=== PATIENT | male | born 1945 | race Caucasian/White ===

== ENCOUNTER → 2016-07-01 | Outpatient (CLI) | payer OTHER ==
--- NOTE | 2016-07-01 11:53 | RAD ---
PROCEDURE MRI cervical spine without contrast. HISTORY Neck and left shoulder pain for 3 weeks. No known injury. TECHNIQUE Sagittal T1, sagittal T2, sagittal STIR, axial T2, and axial T2 gradient sequences are provided. COMPARISON January 21, 2016. FINDINGS There is no change in alignment. There is no worrisome marrow lesion. Minimal endplate edema is noted at C5-C6. This appears degenerative. There is no cord signal abnormality. The cervicomedullary junction is unremarkable. Degenerative findings by individual level are as follows: C2-C3: There is facet hypertrophy which is greater on the left. There is no canal or foraminal compromise. C3-C4: Disc osteophyte complex and uncinate process spurring are noted. There is effacement of the ventral CSF column. Midline AP diameter of the thecal sac is 12 millimeters. Foraminal narrowing bilaterally is high-grade. C4-C5: Disc osteophyte complex and uncinate process spurring are noted. There is effacement of the ventral CSF column. There is no canal stenosis, midline AP diameter of the thecal sac 11-12 millimeters. Foraminal narrowing is [id number] on the right and mild on the left. C5-C6: Disc osteophyte complex and uncinate process spurring are noted. There is effacement of the ventral CSF column. Midline AP diameter of the thecal sac is 10 millimeters, minimal canal stenosis. Foraminal narrowing bilaterally is present, moderate to severe on the left and mild to moderate on the right. C6-C7: Disc osteophyte complex and uncinate process spurring is noted. There is no canal stenosis. Foraminal narrowing is at least moderate bilaterally C7-T1: Disc bulge and facet hypertrophy are noted with mild foraminal narrowing. IMPRESSION Degenerative changes noted throughout the cervical spine appear similar to the January study. No new herniation is identified. Electronically signed by: Frank Loyd MD (Jul 01, 2016 11:52:40)
== END | disposition home or self-care (01) ==
LOC: MRI 10:51
PROVIDERS: ATTEND Physical Medicine & Rehabilitation
DX: M47.892 Other spondylosis, cervical region (principal)
CPT/HCPCS: 72141

== ENCOUNTER → 2016-09-05 | Outpatient (CLI) | payer OTHER ==
[~2016-09-05] MED LIST: ACET500T68 PO; ASPI-482 PO; CHOL10003 PO; CYAN10005 PO; CYCL10TA2 PO; DICL100G18 TP; FLUT16SP NS; HYDR25TA9 PO; IOHEXOL 180 MG/ML 10 ML VIAL. ONE; LIDO700A39 TP; MELO15TA23 PO; MONT10TA9 PO; NORT25CA PO; OMEP20TA8 PO; TAMS0.4C2 PO; TRAM50TA PO; TRAZ150T49 PO; VENTOLIN HFA18 GM INH; methylPREDNISolone ACETATE 40 MG/ML VIAL. ONE; methylPREDNISolone ACETATE 80 MG/ML VIAL. ONE
== END | disposition home or self-care (01) ==
LOC: PNCL 12:57
PROVIDERS: ATTEND Anesthesiology
DX: M47.812 Spondylosis without myelopathy or radiculopathy, cervical region (principal); M50.30 Other cervical disc degeneration, unspecified cervical region; Z88.8 Allergy status to other drugs, medicaments and biological substances
CPT/HCPCS: 62321; J1030; J1040

== ENCOUNTER → 2016-09-19 | Outpatient (CLI) | payer OTHER ==
[~2016-09-19] MED LIST changes: +BUPIVACAINE MPF 0.25% 10 ML VIAL. ONE
== END | disposition home or self-care (01) ==
LOC: PNCL 11:56
PROVIDERS: ATTEND Anesthesiology
DX: M79.1 Myalgia (principal); M50.10 Cervical disc disorder with radiculopathy, unspecified cervical region; M47.22 Other spondylosis with radiculopathy, cervical region; Z88.8 Allergy status to other drugs, medicaments and biological substances
CPT/HCPCS: 20553; J1030; J3490; J1040

== ENCOUNTER → 2016-10-03 | Outpatient (CLI) | payer OTHER ==
[~2016-10-03] MED LIST changes: -IOHEXOL 180 MG/ML 10 ML VIAL. ONE; -methylPREDNISolone ACETATE 80 MG/ML VIAL. ONE
--- NOTE | 2016-10-04 00:41 | PAIN ---
DATE OF SERVICE: 10/03/2016 PROGRESS NOTE FOR PAIN CLINIC DIAGNOSES: 1. Cervical radiculopathy with cervical spondylosis and cervical degenerative disk disease. 2. Myofascial pain with cervicalgia. HISTORY OF PRESENT ILLNESS: The patient is a 70-year-old male who returns for followup status post cervical epidural steroid injection x 1 with about 80% improvement and no more radiation in to his left arm. Second visit, he had trigger point injections in the bilateral cervical paraspinous musculature, bilateral trapezius with about 75% improvement from that. The patient reports doing much better. He is very pleased with his progress. No further radiation to the left upper extremity. Pain in his neck is significantly improved. He has been increasing his activity with greater ease and comfort, rates his pain as a 2-3 on a scale of 10 at its worst, is sleeping better at night. The patient reports no new motor or sensory deficits, still some pain in the base of the neck, mostly on the left side with some activity and reports that he overdid it after his last physical therapy meeting, which was last injections, but otherwise doing quite well. The patient reports numbness and tingling has gone, just aching pain now in the base of the neck, more on the left side, but present bilaterally. PHYSICAL EXAMINATION: VITAL SIGNS: The patient's blood pressure is 136/86, pulse 84, respirations are 20, temperature is 98.2 degrees Fahrenheit. Weight is 303 pounds. GENERAL: The patient is awake, alert, oriented, appropriate, has a very pleasant demeanor. HEENT: Head shows normocephalic, atraumatic. Extraocular movements are intact and symmetrical. Oral cavity shows mucous membranes moist and pink. Dentition is intact. NECK: Shows anterior throat supple without palpable lymphadenopathy noted. Swallow reflex is symmetrical. CHEST: Shows normal on inspection. Breath sounds clear to auscultation bilaterally. HEART: Shows S1 and S2 clear. No murmurs auscultated. ABDOMEN: Obese, soft, nontender, nondistended. No palpable organomegaly is noted. No rebound or guarding demonstrated. BACK: Shows spine grossly in the midline. Cervical lordotic curvature is intact and normal in appearance. Cervical paraspinous musculature shows symmetrical on inspection with palpation, shows some significant tenderness and very firm rope-like trigger point musculature in the middle and lower distribution of the cervical paraspinous muscles bilaterally, worse on the left than the right, but again without radiation, also into the left trapezius in the superior medial aspect, very firm rope-like musculature consistent with trigger point areas of muscle, very mildly on the right side only at the superior medial aspect of the trapezius, but less painful, but again radiation not demonstrated on any aspect of the trigger points on palpation. EXTREMITIES: Upper extremities showed deep tendon reflexes at 1+ in the biceps and triceps tendons. Motor exam is strong with cytogenetic technologist strength rated at 5/5 biceps and triceps flexion. Peripheral pulses are 2+ in radial distribution. No peripheral edema is noted. Options were discussed with the patient. The patient's old chart was reviewed as his current medication regimen and updated. Current review of systems updated today as well. We will proceed with the trigger point injections of the bilateral trapezius and bilateral cervical paraspinous musculature as outlined on exam. Risks were again discussed including, but not limited to bleeding, infection, possibility of intravascular injection sequelae, spread of local anesthetic and numbness, side effects of steroid medications and poor results regarding pain control. The patient understands and wishes to proceed. The patient will return to clinic in approximately 2 weeks for followup, was counseled on return appointment, activity level, and side effects to be aware of. DIAGNOSIS: Cervicalgia with myofascial pain. PROCEDURE: Trigger point injections of bilateral cervical paraspinous musculature as well as the bilateral trapezius musculature using sterile prep and drape with local anesthetic. Medication injected is a total of 9 mL of 0.25% bupivacaine and 40 mg total of Depo-Medrol. CONDITION AT DISCHARGE: Stable. The patient tolerated the procedure well, had no complications. KEEGAN GREEN MD DR: ZEB/lebron JOB#: [id number] / [id number]
== END | disposition home or self-care (01) ==
LOC: PNCL 12:51
PROVIDERS: ATTEND Anesthesiology
DX: M79.1 Myalgia (principal); M50.10 Cervical disc disorder with radiculopathy, unspecified cervical region; M47.22 Other spondylosis with radiculopathy, cervical region; Z88.8 Allergy status to other drugs, medicaments and biological substances
CPT/HCPCS: 20553; J1030; J3490

== ENCOUNTER → 2018-03-01 | Outpatient (CLI) | payer MEDICARE ==
[~2018-03-01] MED LIST changes: -BUPIVACAINE MPF 0.25% 10 ML VIAL. ONE; +HYDR-2145 PO; -HYDR25TA9 PO; -methylPREDNISolone ACETATE 40 MG/ML VIAL. ONE
--- NOTE | 2018-03-01 14:56 | KCIC ---
MRI Lumbar Spine without contrast History: Low back pain, degenerative disc disease, left radiculopathy Technique: Multiplanar, multi sequential noncontrast MR imaging was performed of the lumbar spine. Comparison: None Findings: Lumbar vertebral body stature is overall maintained other than some Schmorl's nodes. There is minimal posterior subluxation of L2 relative L3 and L3 relative L4. There is straightening of the lumbar spine. Conus terminates at the superior aspect of L2. There is variable moderate to severe degenerative disc disease L5-S1, L3-4, L2-3, to a somewhat lesser degree at L1-L2 and L4-5. There is endplate edema probably L4-5, L3-4, inferiorly of L2, very minimally at L1-2 likely reactive/degenerative in etiology. There is very mild levoscoliosis centered near L1-2. There is a T2 hyperintense lesion of the visualized right kidney about 1.7 cm, most likely a cyst. L1-L2: There is protrusion eccentric to the far right lateral recess and inferior right neural foramen superimposed on disc osteophyte complex, mild narrowing of the far right lateral recess. There is mild narrowing of the inferior right neural foramen, left neural foramen adequate. L2-L3: There is a disc osteophyte complex and bulge superimposed on the posteriorly subluxed L2 vertebral body margin with indentation upon the ventral thecal sac greater in the lateral recesses. There is mild buckling of the ligamentum flavum and mild to moderate facet hypertrophic change. There is mild narrowing of the far lateral recesses bilaterally. There is mild narrowing of the right neural foramen greater distally, disc osteophyte complex and bulge also contacting the extraforaminal right L2 nerve root, left neural foramen adequate. L3-L4: There is moderate to severe buckling of the ligamentum flavum and moderate facet degenerative change. There is prominence of posterior epidural fat. There is minimal disc osteophyte complex and bulge superimposed on the posteriorly subluxed L3 vertebral body margin. Combination of findings results in overall severe spinal stenosis with limited preserved subarachnoid space, lateral recess stenosis bilaterally somewhat greater on the left. There is moderate narrowing of the left neural foramen, disc osteophyte complex and bulge also contacting the extraforaminal left L3 nerve root. There is mild narrowing of the right neural foramen although also contact of the extraforaminal right L3 nerve root by protrusion. L4-L5: There is moderate facet degenerative change and [id number] buckling of the ligamentum flavum. Disc osteophyte complex and bulge. There is also superimposed partially contained extrusion eccentric to left lateral recess, slight extent above the intervertebral disc space, greatest dimension about 9 to 10 mm CC by 7 mm AP by about 8 mm transverse. There is severe left lateral recess stenosis with impingement of the descending left L5 nerve root. There is mild prominence of posterior epidural fat. There is [id number] right lateral recess stenosis and narrowing of the central canal. There is moderate to severe narrowing of the left neural foramen with contact undersurface exiting left L4 nerve root extending to the extraforaminal region by disc osteophyte complex and extrusion. Right neural foramen is adequate. L5-S1: There is disc osteophyte complex and bulge, contact of the descending S1 nerve roots greater on the left, also mild to moderate facet degenerative change and mild buckling of the ligamentum flavum. There is moderate to severe left lateral recess stenosis, mild right lateral recess stenosis. There is severe neural foramina compromise bilaterally with impingement of the exiting L5 nerve root, narrowing due to disc osteophyte complex in combination with facet degenerative change. Impression: 1. There is severe spinal stenosis L3-4. There is severe left lateral recess stenosis at L4-5 and to a slightly lesser degree on the left at L5-S1 as described. 2. There is multilevel lumbar neural foramina compromise as stated, more significant narrowing bilaterally at L5-S1 and on the left at L4-5, to a lesser degree on the left at L3-4. There is also contact of the extraforaminal nerve roots as stated most notable left L4 nerve root at L4-5. 3. There is multilevel variable moderate to severe degenerative disc disease greatest L2-3, L3-4, L5-S1. There is multilevel variable endplate edema greatest at L3-4 likely reactive/degenerative in etiology. There is multilevel mild spondylosis. There is multilevel facet degenerative change, mild abnormal alignment as stated. Electronically signed by: Silverio Pino MD (03/01/2018 2:52 PM) [id number]
== END | disposition home or self-care (01) ==
LOC: KCIC MRI 12:23
PROVIDERS: ATTEND Internal Medicine
DX: M51.16 Intervertebral disc disorders with radiculopathy, lumbar region (principal); M51.37 Other intervertebral disc degeneration, lumbosacral region; M48.061 Spinal stenosis, lumbar region without neurogenic claudication; M47.896 Other spondylosis, lumbar region; M25.78 Osteophyte, vertebrae; M51.46 Schmorl's nodes, lumbar region
CPT/HCPCS: 72148